=== PATIENT | male | born 2000 | race Caucasian/White ===

== ENCOUNTER 2020-04-25 18:34 | Emergency (ER) | payer SELFPAY ==
[2020-04-25] MEDS ORDERED: Dexamethasone 10 MG/ML SDV IM STA (18:40)
[2020-04-25] MEDS ORDERED: predniSONE 20 MG Tab PO STA (18:45)
[2020-04-25 19:08] VITALS: BP 148/86; PULSE 102
--- NOTE | 2020-04-25 19:14 | EDM.PDOC ---
ED HPI GENERAL MEDICAL PROBLEM - General Chief Complaint: Allergic Reaction Stated Complaint: SICK Time Seen by Provider: 04/25/20 18:39 - History of Present Illness INITIAL COMMENTS - FREE TEXT/NARRATIVE: History of present illness: [] this patient was stung by a bee friable his right forearm and he previously was stung in the hand on the left side and had his entire arm swelled up into a painful severe reaction. He is never been short of breath with airway problems or hypotension after being stung. Mother gave him 50 mg of Benadryl and sent him to the hospital because of the severity of the prior reaction. He also has a scratchy throat which he attributes to the fact that he was exposed to dust at work yesterday. He has no cough or fever. Review of systems: As per history of present illness and below otherwise all systems reviewed and negative. Past medical history: As per history of present illness and as reviewed below otherwise noncontributory. Surgical history: As per history of present illness and as reviewed below otherwise noncontributory. Social history: No reported history of drug or alcohol abuse. Family history: As per history of present illness and as reviewed below otherwise noncont ributory. Physical exam: HEENT: Atraumatic, normocephalic, pupils reactive, negative for conjunctival pallor or scleral icterus, mucous membranes moist, throat clear, neck supple, nontender, trachea midline. Lungs: Clear to auscultation, breath sounds equal bilaterally, chest nontender. Heart: S1S2, regular, negative for clicks, rubs, or JVD. Abdomen: Soft, nondistended, nontender. Negative for masses or hepatosplenomegaly. Negative for costovertebral tenderness. Pelvis: Stable nontender. Genitourinary: Deferred. Rectal: Deferred. Extremities: Atraumatic, negative for cords or calf pain. Neurovascular unremarkable. Neuro: Awake, alert, oriented. Cranial nerves II through XII unremarkable. Cerebellum unremarkable. Motor and sensory unremarkable throughout. Exam nonfocal. Diagnostics: [] Therapeutics: [] Impression: [] Plan: [] Definitive disposition and diagnosis as appropriate pending reevaluation and review of above. Treated with phone because mother said he had a episode of agitated behavior after Decadron in the past but has tolerated prednisone. A rapid strep was done also because of the scratchy throat without cough. - Related Data Allergies Allergy/AdvReac Type Severity Reaction Status Date / Time bee venom protein (honey bee) Allergy Swelling Verified 04/25/20 18:43 dexamethasone [From Decadron] Allergy Change Verified 06/28/19 22:05 Mental Status dexamethasone sod phosphate Allergy Change Verified 06/28/19 22:05 [From Decadron] Mental Status pneumococcal vaccine Allergy Fever Verified 06/28/19 22:05 [Pneumococcal Vaccine] Home Meds: Home Meds predniSONE [Prednisone] 40 mg PO DAILY #9 tablet 04/25/20 [Rx] Past Medical History - Past Health History Medical/Surgical History: Denies Medical/Surgical History - Infectious Disease History Infectious Disease History: Reports: None - Past Surgical History HEENT Surgical History: Reports: Adenoidectomy, Tonsillectomy Musculoskeletal Surgical History: Reports: Other (See Below) Other Musculoskeletal Surgeries/Procedures:: left foot sx Social & Family History - Family History Family Medical History: Noncontributory - Tobacco Use Smoking Status *Q: Current Every Day Smoker Years of Tobacco use: 3 Packs/Tins Daily: 1 - Recreational Drug Use Recreational Drug Use: No ED ROS ALLERGIC REACTION - Review of Systems Review Of Systems: Comprehensive ROS is negative, except as noted in HPI. ED EXAM GENERAL NO PERIP PULSE - Physical Exam Exam: See Below Text/Narrative:: Exam is on the H&P Course - Vital Signs Last Recorded V/S: Last Vital Signs Temp 97.2 F 04/25/20 18:37 Pulse 102 H 04/25/20 19:07 Resp 18 04/25/20 19:07 BP 148/86 H 04/25/20 19:07 Pulse Ox 96 04/25/20 19:07 - Orders/Labs/Meds Orders: Active Orders 24 hr Category Date Time Status STREP SCRN A RAPID W CULT CONF [RM] Stat Lab 04/25/20 19:07 Ordered Meds: Medications Discontinued Medications Generic Name Dose Route Start Last Admin Trade Name Mar PRN Reason Stop Dose Admin Dexamethasone 4 mg 04/25/20 18:40 04/25/20 19:08 Dexamethasone IM 04/25/20 18:41 Not Given ONETIME STA Prednisone 40 mg 04/25/20 18:45 04/25/20 19:07 Prednisone PO 04/25/20 18:46 40 mg ONETIME STA Administration Departure - Departure Time of Disposition: 19:16 Disposition: Home, Self-Care 01 Condition: Good Clinical Impression: Bee sting - Discharge Information *PRESCRIPTION DRUG MONITORING PROGRAM REVIEWED*: Not Applicable *COPY OF PRESCRIPTION DRUG MONITORING REPORT IN PATIENT MISTI: Not Applicable Referrals: PCP,None [Primary Care Provider] - Additional Instructions: The following information is given to patients seen in the emergency department who are being discharged to home. This information is to outline your options for follow-up care. We provide all patients seen in our emergency department with a follow-up referral. The need for follow-up, as well as the timing and circumstances, are variable depending upon the specifics of your emergency department visit. If you don't have a primary care physician on staff, we will provide you with a referral. We always advise you to contact your personal physician following an emergency department visit to inform them of the circumstance of the visit and for follow-up with them and/or the need for any referrals to a consulting specialist. The emergency department will also refer you to a specialist when appropriate. This referral assures that you have the opportunity for follow-up care with a specialist. All of these measure are taken in an effort to provide you with optimal care, which includes your follow-up. Under all circumstances we always encourage you to contact your private physician who remains a resource for coordinating your care. When calling for follow-up care, please make the office aware that this follow-up is from your recent emergency room visit. If for any reason you are refused follow-up, please contact the [facility] Emergency Department at and asked to speak to the emergency department charge nurse. [facility] - Primary Care [address] [place] [address] [id number] [address] [id number] Considering the severity of your prior reaction I would take Benadryl 25 mg 3 times a day for the next 3 days Sepsis Event Note (ED) - Evaluation Sepsis Screening Result: No Definite Risk - Focused Exam Vital Signs: Vital Signs Temp Pulse Resp BP Pulse Ox 04/25/20 19:07 102 H 18 148/86 H 96 04/25/20 18:37 97.2 F 120 H 20 160/92 H 97 - My Orders Last 24 Hours: My Active Orders 04/25/20 19:07 STREP SCRN A RAPID W CULT CONF [RM] Stat - Assessment/Plan Last 24 Hours: My Active Orders 04/25/20 19:07 STREP SCRN A RAPID W CULT CONF [RM] Stat
== END 2020-04-25 20:10 | disposition home or self-care (01) ==
LOC: MW.ED 18:34
DX: T63.441A Toxic effect of venom of bees, accidental (unintentional), initial encounter (principal); F17.210 Nicotine dependence, cigarettes, uncomplicated; Z91.030 Bee allergy status; Z88.8 Allergy status to other drugs, medicaments and biological substances
CPT/HCPCS: 87081; 87880; 99283; A9270; 99282

== ENCOUNTER 2020-11-20 18:57 | Emergency (ER) | payer OTHER ==
[2020-11-20] MEDS ORDERED: Diphtheria,Pertussis(Acell),Tetanus Vaccine 0.5 ML Syringe IM ONE (19:49)
--- NOTE | 2020-11-20 19:52 | EDM.PDOC ---
ED HPI GENERAL MEDICAL PROBLEM - General Chief Complaint: Laceration Stated Complaint: chest stiches Time Seen by Provider: 11/20/20 19:05 - History of Present Illness INITIAL COMMENTS - FREE TEXT/NARRATIVE: History of present illness: [] The patient was cut across the chest and through his shirt with a rubber roller grinder that was grinding metal. He has a laceration across the anterior chest. He has no other symptoms. He does not know when his last tetanus shot was. Lost control a rubber roller grinder and bounced up on his chest cutting his certain cutting his chest. Thereabouts in his nose and bruised his nose which has been broken multiple times in the past. He has a small laceration on the bridge of his nose and on his chest. Review of systems: As per history of present illness and below otherwise all systems reviewed and negative. Past medical history: As per history of present illness and as reviewed below otherwise noncontributory. Surgical history: As per history of present illness and as reviewed below otherwise noncon tributory. Social history: No reported history of drug or alcohol abuse. Family history: As per history of present illness and as reviewed below otherwise noncontributory. Physical exam: Constitutional - well developed, well-nourished and in no acute distress HEENT -Munir swelling in the nose. The septum is midline. There is no septal hematoma. There is a 3 mm laceration which is not concerned about having repaired on the anterior bridge of nose and is very superficial. Normocephalic, no evidence of trauma - external nose and mouth normal - no mass in neck and no JVD - mucosae moist EYES - full EOM, PERRL, no icterus - no evidence of inflammation, injection, or drainage Respiratory - no respiratory distress, equal bilateral expansion Musculoskeletal no gross deformity of long bones or joints - no tenderness, swelling or edema Neurologic - Alert and oriented times four - CN II-XII grossly intact - motor sensory and coordination symmetrically normal Psychiatric - appropriate mood and affect with normal thought content Hematologic - No petechiae or purpura - mucosa appropriate color and sclera not pale - normal nail bed color and refill Integument -1 to 1.2 cm laceration in the anterior chest wall. Its oriented side to side longitudinally and it has burnt or contaminated dark edges. It is slightly into the dermis. There is a linear abrasion that extends beyond the border of the laceration on both sides. Eyes no rash or evidence of trauma - normal turgor Diagnostics: [] Therapeutics: [] Impression: [] Plan: [] Definitive disposition and diagnosis as appropriate pending reevaluation and review of above. - Related Data Allergies Allergy/AdvReac Type Severity Reaction Status Date / Time bee venom protein (honey bee) Allergy Swelling Verified 11/20/20 19:18 dexamethasone [From Decadron] Allergy Change Verified 11/20/20 19:18 Mental Status dexamethasone sod phosphate Allergy Change Verified 11/20/20 19:18 [From Decadron] Mental Status pneumococcal vaccine Allergy Fever Verified 11/20/20 19:18 [Pneumococcal Vaccine] Home Meds: Home Meds . [No Known Home Meds] 11/20/20 [History] Past Medical History - Past Health History Medical/Surgical History: Denies Medical/Surgical History - Infectious Disease History Infectious Disease History: Reports: None - Past Surgical History HEENT Surgical History: Reports: Adenoidectomy, Tonsillectomy Musculoskeletal Surgical History: Reports: Other (See Below) Other Musculoskeletal Surgeries/Procedures:: left foot sx Social & Family History - Family History Family Medical History: No Pertinent Family History - Tobacco Use Tobacco Use Status *Q: Current Every Day Tobacco User Years of Tobacco use: 3 Packs/Tins Daily: 1 - Caffeine Use Caffeine Use: Reports: Coffee, Energy Drinks, Soda, Tea - Recreational Drug Use Recreational Drug Use: Yes Recreational Drug Type: Reports: Marijuana/Hashish Recreational Drug Use Frequency: Daily ED ROS GENERAL - Review of Systems Review Of Systems: Comprehensive ROS is negative, except as noted in HPI. ED EXAM, SKIN/RASH Exam: See Below Text/Narrative:: My physical exam is in the HPI ED SKIN PROCEDURES - Laceration/Wound Repair Middle Chest Appearance: Subcutaneous, Mildly Contaminated Distal NVT: Neuro & Vascular Intact Anesthetic Type: Local Local Anesthesia - Lidocaine (Xylocaine): 1% Plain Local Anesthetic Volume: 5cc Skin Prep: Chlorhexidine (Hibiciens), Saline Saline Irrigation (cc's): 500 Exploration/Debridement/Repair: Wound Explored, Moderate Debridement Closed with: Sutures Lac/Wound length In cm: 1.2 Suture Size: 4-0 # of Sutures: 5 Suture Type: Nylon Progress/Comments: Patient understood that we could do this by secondary intent with Betadine wet-to-dry dressings or we could suture the wound. It was too contaminated to consider suturing until we anesthetized it and had it scrubbed. After that it a ppeared clean and I discussed with him the possibility we might get away with a primary closure. He elected to do so and I did the procedure above described. He will watch closely for evidence of infection. There appears to be no contaminant left. Course - Vital Signs Text/Narrative:: On initial exam I am not sure the edges of the laceration are burned from heat are contaminated with debris from his shirt and the metal that the rubber roller grinder was cutting. The plan is to anesthetize the wound and scab it hard enough to see if we can get it down to an area that is clean and has no debris. If so I will repair it. If not I will show him how to do wet-to-dry there is things and have a recheck in 2 to 3 days. Last Recorded V/S: Last Vital Signs Temp 36.2 C 11/20/20 19:18 Pulse 95 11/20/20 19:18 Resp 17 11/20/20 19:18 BP 121/71 11/20/20 19:18 Pulse Ox 96 11/20/20 19:18 - Orders/Labs/Meds Orders: Active Orders 24 hr Category Date Time Status Vaccines to be Administered [RC] PER UNIT ROUTINE Care 11/20/20 19:50 Active Meds: Medications Discontinued Medications Generic Name Dose Route Start Last Admin Trade Name Phongq PRN Reason Stop Dose Admin Diphtheria/Tetanus/Acell Pertussis 0.5 ml 11/20/20 19:49 11/20/20 19:56 Boostrix IM 11/20/20 19:50 0.5 ml .ONCE ONE Administration Lidocaine HCl 5 ml 11/20/20 19:48 11/20/20 19:56 Xylocaine-Mpf 1% INJECT 11/20/20 19:49 5 ml ONETIME ONE Administration Departure - Departure Time of Disposition: 20:54 Disposition: Home, Self-Care 01 Condition: Good Clinical Impression: Laceration of chest wall, Laceration of nose, Contusion, nose - Discharge Information Instructions: Laceration Care, Adult, Sutured Wound Care, Facial or Scalp Contusion Referrals: PCP,None [Primary Care Provider] - Forms: ED Department Discharge Additional Instructions: Sutures out in 7 to 10 days. Because of the significance of the contamination that we try to clean out watch for redness pus drainage or evidence of infection and return to remove sutures and start over with dressings if this happens. [facility] - Primary Care [address] [place] [id number] [facility] [address] [place] [address] The following information is given to patients seen in the emergency department who are being discharged to home. This information is to outline your options for follow-up care. We provide all patients seen in our emergency department with a follow-up referral. The need for follow-up, as well as the timing and circumstances, are variable depending upon the specifics of your emergency department visit. If you don't have a primary care physician on staff, we will provide you with a referral. We always advise you to contact your personal physician following an emergency department visit to inform them of the circumstance of the visit and for follow-up with them and/or the need for any referrals to a consulting specialist. The emergency department will also refer you to a specialist when appropriate. This referral assures that you have the opportunity for follow-up care with a specialist. All of these measure are taken in an effort to provide you with optimal care, which includes your follow-up. Under all circumstances we always encourage you to contact your private physician who remains a resource for coordinating your care. When calling for follow-up care, please make the office aware that this follow-up is from your recent emergency room visit. If for any reason you are refused follow-up, please contact the [facility] Emergency Department at and asked to speak to the emergency department charge nurse. Sepsis Event Note (ED) - Evaluation Sepsis Screening Result: No Definite Risk - Focused Exam Vital Signs: Vital Signs Temp Pulse Resp BP Pulse Ox 11/20/20 19:18 36.2 C 95 17 121/71 96 - My Orders Last 24 Hours: My Active Orders 11/20/20 19:50 Vaccines to be Administered [RC] PER UNIT ROUTINE - Assessment/Plan Last 24 Hours: My Active Orders 11/20/20 19:50 Vaccines to be Administered [RC] PER UNIT ROUTINE
[2020-11-20 21:13] VITALS: BP 121/79; PULSE 69
== END 2020-11-20 21:13 | disposition home or self-care (01) ==
LOC: MW.ED 18:57
DX: S21.119A Laceration without foreign body of unspecified front wall of thorax without penetration into thoracic cavity, initial encounter (principal); S01.21XA Laceration without foreign body of nose, initial encounter; Z91.030 Bee allergy status; Z88.8 Allergy status to other drugs, medicaments and biological substances; Z72.0 Tobacco use; Z23 Encounter for immunization; W31.89XA Contact with other specified machinery, initial encounter; Y99.0 Civilian activity done for income or pay
CPT/HCPCS: 12001; 90471; 99282; J2001

== ENCOUNTER 2021-04-16 19:02 | Emergency (ER) | payer SELFPAY ==
[2021-04-16] MEDS ORDERED: Levofloxacin 500 MG Tab PO ONE (19:25)
--- NOTE | 2021-04-16 19:29 | EDM.PDOC ---
ED HPI GENERAL MEDICAL PROBLEM - General Chief Complaint: Lower Extremity Injury/Pain Stated Complaint: RIGHT TOE, STEP ON A NAIL Time Seen by Provider: 04/16/21 19:04 Source of Information: Reports: Patient History Limitations: Reports: No Limitations - History of Present Illness INITIAL COMMENTS - FREE TEXT/NARRATIVE: Patient is a 20-year-old male who presents today for stepping on a nail. Patient was wearing shoes and socks states he stepped on right knee nail was able to pull out intact out of his big toe. Patient states that he has some bleeding from his first right toe that is since stopped. Patient reports some swelling and pain. Patient denies any fever chills nausea vomiting or other complaints. right toe Pain Score (Numeric/FACES): 8 - Related Data Allergies Allergy/AdvReac Type Severity Reaction Status Date / Time bee venom protein (honey bee) Allergy Swelling Verified 04/16/21 19:17 dexamethasone [From Decadron] Allergy Change Verified 04/16/21 19:17 Mental Status dexamethasone sod phosphate Allergy Change Verified 04/16/21 19:17 [From Decadron] Mental Status pneumococcal vaccine Allergy Fever Verified 04/16/21 19:17 [Pneumococcal Vaccine] Home Meds: Home Meds levoFLOXacin [Levaquin] 750 mg PO DAILY 7 Days #7 tab 04/16/21 [Rx] Past Medical History - Past Health History Medical/Surgical History: Denies Medical/Surgical History - Infectious Disease History Infectious Disease History: Reports: None - Past Surgical History HEENT Surgical History: Reports: Adenoidectomy, Tonsillectomy Musculoskeletal Surgical History: Reports: Other (See Below) Other Musculoskeletal Surgeries/Procedures:: left foot sx Social & Family History - Family History Family Medical History: No Pertinent Family History - Tobacco Use Packs/Tins Daily: 0.5 - Caffeine Use Caffeine Use: Reports: None - Recreational Drug Use Recreational Drug Use: Yes Recreational Drug Type: Reports: Marijuana/Hashish Review of Systems - Review of Systems Review Of Systems: See Below Constitutional: Reports: No Symptoms Eyes: Reports: No Symptoms Ears: Reports: No Symptoms Nose: Reports: No Symptoms Mouth/Throat: Reports: No Symptoms Respiratory: Reports: No Symptoms Cardiovascular: Reports: No Symptoms GI/Abdominal: Reports: No Symptoms Genitourinary: Reports: No Symptoms Musculoskeletal: Reports: No Symptoms Skin: Reports: Wound (puncture) Neurological: Reports: No Symptoms Psychiatric: Reports: No Symptoms ED EXAM, GENERAL - Physical Exam Exam: See Below Exam Limited By: No Limitations General Appearance: Alert, WD/WN Extremities: Normal Inspection, Normal Range of Motion, Non-Tender Neurological: Alert, Oriented, Normal Gait Skin Exam: Other (small puncture wound to 1st toe ) Course - Vital Signs Last Recorded V/S: Last Vital Signs Temp 97.9 F 04/16/21 19:15 Pulse 97 04/16/21 19:15 Resp 16 04/16/21 19:15 BP 141/102 H 04/16/21 19:15 Pulse Ox 99 04/16/21 19:15 - Orders/Labs/Meds Orders: Active Orders 24 hr Category Date Time Status Foot Comp Min 3V Rt [CR] Stat Exams 04/16/21 19:19 Taken Meds: Medications Discontinued Medications Generic Name Dose Route Start Last Admin Trade Name Freq PRN Reason Stop Dose Admin Levofloxacin 750 mg 04/16/21 19:25 04/16/21 19:33 Levofloxacin 500 Mg Tab PO 04/16/21 19:26 750 mg ONETIME ONE Administration Departure - Departure Time of Disposition: 19:45 Disposition: Home, Self-Care 01 Condition: Good Clinical Impression: Puncture wound of toe of right foot - Discharge Information *PRESCRIPTION DRUG MONITORING PROGRAM REVIEWED*: Not Applicable *COPY OF PRESCRIPTION DRUG MONITORING REPORT IN PATIENT MISTI: Not Applicable Prescriptions: levoFLOXacin [Levaquin] 750 mg PO DAILY 7 Days #7 tab Instructions: Puncture Wound Referrals: PCP,None [Primary Care Provider] - Forms: ED Department Discharge Additional Instructions: The following information is given to patients seen in the emergency department who are being discharged to home. This information is to outline your options for follow-up care. We provide all patients seen in our emergency department with a follow-up referral. The need for follow-up, as well as the timing and circumstances, are variable depending upon the specifics of your emergency department visit. If you don't have a primary care physician on staff, we will provide you with a referral. We always advise you to contact your personal physician following an emergency department visit to inform them of the circumstance of the visit and for follow-up with them and/or the need for any referrals to a consulting specialist. The emergency department will also refer you to a specialist when appropriate. This referral assures that you have the opportunity for follow-up care with a specialist. All of these measure are taken in an effort to provide you with optimal care, which includes your follow-up. Under all circumstances we always encourage you to contact your private physician who remains a resource for coordinating your care. When calling for follow-up care, please make the office aware that this follow-up is from your recent emergency room visit. If for any reason you are refused follow-up, please contact the Emergency Department at and asked to speak to the emergency department charge nurse. Please follow up with your primary care physician. If you do not have a primary care physician, see below: [facility] Primary [facility] [address] [place] [id number] My [facility] [address] [place] [address] You were seen today after stepped on a nail that went to your shoe. We did x- ray and there was no retained nail in the toe and the toe looks intact with no fractures. We will continue home antibiotics he would take daily. Please continue to keep the area clean. If you have any increased pain swelling of the toe or drainage please return to ED immediately otherwise follow-up with your primary care physician. Sepsis Event Note (ED) - Evaluation Sepsis Screening Result: No Definite Risk - Focused Exam Vital Signs: Vital Signs Temp Pulse Resp BP Pulse Ox 04/16/21 19:15 97.9 F 97 16 141/102 H 99 - My Orders Last 24 Hours: My Active Orders 04/16/21 19:19 Foot Comp Min 3V Rt [CR] Stat - Assessment/Plan Last 24 Hours: My Active Orders 04/16/21 19:19 Foot Comp Min 3V Rt [CR] Stat Plan: Patient is a 20-year-old male presents today for puncture wound to his first toe. There is a small puncture wound. Will obtain x-ray to make sure that they have the nail does not retain. Will prescribe patient antibiotics and discharge home likely.
[2021-04-16 19:33] VITALS: BP 141/102; PULSE 97
--- NOTE | 2021-04-16 20:21 | CR ---
For Patients: As a result of the Cures Act, medical imaging exams and procedure reports are released immediately into your electronic medical record. You may view this report before your referring provider. If you have questions, please contact your health care provider. Indication: Puncture injury. Stepped on nail. Technique: Right foot 3 views Comparison: None Findings/Impression: Bones: Alignment is normal. No fractures or bone lesions. Joint spaces: Unremarkable. Soft tissues: Unremarkable. No sign of soft tissue injury or foreign body. Dictated by Jose Garcia MD @ 04/16/2021 8:19:[address] Jose Garcia @ Apr 16 2021 8:19PM
== END 2021-04-16 19:54 | disposition home or self-care (01) ==
LOC: MW.ED 19:02
DX: S91.131A Puncture wound without foreign body of right great toe without damage to nail, initial encounter (principal); Z91.030 Bee allergy status; Z88.8 Allergy status to other drugs, medicaments and biological substances; Z88.7 Allergy status to serum and vaccine; Z72.0 Tobacco use; W45.0XXA Nail entering through skin, initial encounter
CPT/HCPCS: 73630; 99283; A9270

== ENCOUNTER 2022-04-04 20:53 | Emergency (ER) | payer SELFPAY ==
[2022-04-04] MEDS ORDERED: Ibuprofen 600 MG Tab PO ONE (21:00)
[2022-04-04] MEDS ORDERED: Acetaminophen/HYDROcodone 325-5 MG Tab PO ONE (21:00)
[2022-04-04] MEDS ORDERED: Bacitracin Oint 1 GM U/D Packet TOP ONE (21:00)
[2022-04-04 22:38] VITALS: BP 125/79; PULSE 103
== END 2022-04-04 22:53 | disposition home or self-care (01) ==
LOC: MW.ED 20:53
DX: S60.512A Abrasion of left hand, initial encounter (principal); S80.212A Abrasion, left knee, initial encounter; S50.811A Abrasion of right forearm, initial encounter; S09.90XA Unspecified injury of head, initial encounter; Z91.030 Bee allergy status; Z88.7 Allergy status to serum and vaccine; Z88.8 Allergy status to other drugs, medicaments and biological substances; V86.56XA Driver of dirt bike or motor/cross bike injured in nontraffic accident, initial encounter; Y92.410 Unspecified street and highway as the place of occurrence of the external cause
CPT/HCPCS: 70450; 72125; 73130; 99284; A9270

== ENCOUNTER 2023-02-09 12:32 | Emergency (ER) | payer SELFPAY ==
[2023-02-09] MEDS ORDERED: Ketorolac 30 MG/ML SDV IVPUSH ONE (13:24)
[2023-02-09] MEDS ORDERED: Sodium Chloride 0.9% 1,000 ML IV ONE (13:24)
[2023-02-09] MEDS ORDERED: Ondansetron 4 MG/2 ML SDV IVPUSH ONE (13:24)
[2023-02-09 14:01] LABS: CARBON DIOXIDE,CO2 26.2 mmol/L (21.0-32.0); POTASSIUM,K 4.3 mmol/L (3.5-5.1)
[2023-02-09 14:22] LABS: CORONAVIRUS COVID-19 NAA NEGATIVE (NEGATIVE); INFLUENZA A NAA NEGATIVE (NEGATIVE); INFLUENZA B NAA NEGATIVE (NEGATIVE)
[2023-02-09] MEDS ORDERED: Iopamidol 755 MG/ML 500 ML Multipack Bottle IVPUSH ONE (15:12)
[2023-02-09 17:23] VITALS: BP 125/78; PULSE 83
== END 2023-02-09 17:23 | disposition home or self-care (01) ==
LOC: MW.ED 12:32
DX: R11.2 Nausea with vomiting, unspecified (principal); D72.829 Elevated white blood cell count, unspecified; Z91.030 Bee allergy status; Z88.7 Allergy status to serum and vaccine; Z88.8 Allergy status to other drugs, medicaments and biological substances; Z20.822 Contact with and (suspected) exposure to COVID-19
CPT/HCPCS: 0240U; 36415; 74177; 80053; 80307; 81003; 83690; 85025; 96361; 96374; 96375; 99284; J1885; J2405; J7030; Q9967

== ENCOUNTER 2023-02-12 10:53 | Emergency (ER) | payer SELFPAY ==
[2023-02-12 11:03] VITALS: BP 153/94; PULSE 79
== END 2023-02-12 12:12 | disposition home or self-care (01) ==
LOC: MW.ED 10:53
DX: R10.84 Generalized abdominal pain (principal); J34.89 Other specified disorders of nose and nasal sinuses; Z71.1 Person with feared health complaint in whom no diagnosis is made; Z91.030 Bee allergy status; Z88.8 Allergy status to other drugs, medicaments and biological substances; Z88.7 Allergy status to serum and vaccine
CPT/HCPCS: 99282; 99283

== ENCOUNTER 2023-03-15 08:27 | Emergency (ER) | payer SELFPAY ==
[2023-03-15] MEDS ORDERED: Sodium Chloride 0.9% 2.5 ML Syringe FLUSH PRN (08:40)
[2023-03-15] MEDS ORDERED: Sodium Chloride 0.9% 10 ML Syringe FLUSH PRN (08:40)
[2023-03-15] MEDS ORDERED: Lactated Ringers 1,000 ML IV ONE (08:42)
[2023-03-15 08:48] LABS: BASOPHILS PERCENT AUTO 0.4 % (0.0-1.5); EOSINOPHILS ABSOLUTE AUTO 0.2 K/uL (0.0-0.7); EOSINOPHILS PERCENT AUTO 1.8 % (0.0-7.0); HEMATOCRIT 46.2 % (38.0-50.0); LYMPHOCYTES PERCENT AUTO 40.1 % (16.0-40.0); MEAN CORPUSCULAR HEMOGLOBIN 31.6 pg (27.0-32.0); MEAN CORPUSCULAR HGB CONC 34.6 g/dL (31.0-37.0); MEAN CORPUSCULAR VOLUME 91.1 fL (80.0-98.0); MONOCYTES ABSOLUTE AUTO 1.1 K/uL (0.0-0.8); MONOCYTES PERCENT AUTO 11.1 % (0.0-15.0); NEUTROPHILS ABSOLUTE AUTO 4.7 K/uL (1.4-5.7); NEUTROPHILS PERCENT AUTO 46.6 % (48.0-80.0); PLATELET COUNT,PLT 326 K/uL (150-400); RED BLOOD CELL COUNT 5.07 M/uL (4.50-5.90); WHITE BLOOD CELL COUNT,WBC 10.03 K/uL (4.0-11.0)
[2023-03-15 09:14] VITALS: BP 105/62; PULSE 81
[2023-03-15 09:14] LABS: A/G RATIO 1.2 (0.9-1.6); BILIRUBIN TOTAL 0.4 mg/dL (0.2-1.0); CALCIUM 9.8 mg/dL (8.5-10.1); CREATININE 1.3 mg/dL (0.8-1.3); EST CRCL DRUG DOSING (CG) 82.92 mL/min; POTASSIUM,K 4.1 mmol/L (3.5-5.1); PROTEIN TOTAL,TP 7.3 g/dL (6.4-8.2)
== END 2023-03-15 09:22 | disposition home or self-care (01) ==
LOC: MW.ED 08:27
DX: R55 Syncope and collapse (principal); Z88.8 Allergy status to other drugs, medicaments and biological substances; Z88.7 Allergy status to serum and vaccine; Z91.030 Bee allergy status
CPT/HCPCS: 36415; 80053; 82947; 83735; 84484; 85025; 93005; 96360; 99284; J3490; J7120; 93010; 99283

== ENCOUNTER 2024-02-13 10:12 | Emergency (ER) | payer SELFPAY ==
[2024-02-13] MEDS: Lidocaine 1% PF 2 ML SDV INJECT ONE (10:34)
[2024-02-13 11:00] VITALS: BP 126/86; PULSE 68
== END 2024-02-13 11:00 | disposition home or self-care (01) ==
LOC: MW.ED 10:12
DX: S61.210A Laceration without foreign body of right index finger without damage to nail, initial encounter (principal); S61.212A Laceration without foreign body of right middle finger without damage to nail, initial encounter; Z91.030 Bee allergy status; Z88.8 Allergy status to other drugs, medicaments and biological substances; Z88.7 Allergy status to serum and vaccine; Z75.8 Other problems related to medical facilities and other health care; W26.8XXA Contact with other sharp object(s), not elsewhere classified, initial encounter
CPT/HCPCS: 12001; 99282; 99283; J3490

== ENCOUNTER 2024-06-15 16:30 | Emergency (ER) | payer SELFPAY ==
[2024-06-15] MEDS ORDERED: Sodium Chloride 0.9% 2.5 ML Syringe FLUSH PRN (16:41)
[2024-06-15] MEDS ORDERED: Sodium Chloride 0.9% 10 ML Syringe FLUSH PRN (16:41)
[2024-06-15] MEDS ORDERED: Sodium Chloride 0.9% 20 ML SDV IV PRN (16:41)
[2024-06-15] MEDS: diphenhydrAMINE 50 MG/ML SDV IVPUSH ONE (17:01)
[2024-06-15] MEDS: methylPREDNISolone Sodium Succinate 125 MG/2 ML SDV IVPUSH ONE (17:01)
[2024-06-15] MEDS: Famotidine 20 MG/2 ML SDV IVPUSH ONE (17:01)
[2024-06-15] MEDS: EPINEPHrine 1 MG/1 ML Amp IM ONE (19:12)
[2024-06-15 19:38] VITALS: BP 147/73; PULSE 93
== END 2024-06-15 19:41 | disposition home or self-care (01) ==
LOC: MW.ED 16:30
DX: T63.441A Toxic effect of venom of bees, accidental (unintentional), initial encounter (principal); Z88.8 Allergy status to other drugs, medicaments and biological substances; Z91.030 Bee allergy status
CPT/HCPCS: 96374; 96375; 99282; J1200; J2919; J3490

== ENCOUNTER 2024-07-01 01:03 | Emergency (ER) | payer SELFPAY ==
[2024-07-01] MEDS: Acetaminophen/HYDROcodone 325-5 MG Tab PO ONE (01:20)
[2024-07-01 02:39] VITALS: BP 145/78; PULSE 78
== END 2024-07-01 02:36 | disposition home or self-care (01) ==
LOC: MW.ED 01:03
DX: S02.40CA Maxillary fracture, right side, initial encounter for closed fracture (principal); S02.19XA Other fracture of base of skull, initial encounter for closed fracture; Z88.8 Allergy status to other drugs, medicaments and biological substances; Z91.030 Bee allergy status; Z88.7 Allergy status to serum and vaccine; W22.8XXA Striking against or struck by other objects, initial encounter
CPT/HCPCS: 70450; 70486; 99284; A9270

== ENCOUNTER 2024-11-05 08:25 | Emergency (ER) | payer SELFPAY ==
[2024-11-05 08:52] LABS: BASOPHILS ABSOLUTE AUTO 0.04 K/uL (0.00-0.20); BASOPHILS PERCENT AUTO 0.2 % (0.0-1.0); EOSINOPHILS ABSOLUTE AUTO 0.09 K/uL (0.00-0.45); EOSINOPHILS PERCENT AUTO 0.5 % (0.0-6.0); HEMATOCRIT 49.9 % (42.0-52.0); HEMOGLOBIN 18.1 g/dL (14.0-18.0); IMMATURE GRAN ABSOLUTE AUTO 0.06 K/uL (0.00-0.05); IMMATURE GRAN PERCENT AUTO 0.3 % (0.0-0.4); LYMPHOCYTES ABSOLUTE AUTO 0.82 K/uL (1.00-4.80); LYMPHOCYTES PERCENT AUTO 4.8 % (24.0-44.0); MEAN CORPUSCULAR HEMOGLOBIN 32.1 pg (28.0-32.0); MEAN CORPUSCULAR HGB CONC 36.3 g/dL (32.0-36.0); MEAN CORPUSCULAR VOLUME 88.5 fL (83.0-99.0); MEAN PLATELET VOLUME 8.7 fL (9.4-12.4); MONOCYTES ABSOLUTE AUTO 1.02 K/uL (0.00-0.80); MONOCYTES PERCENT AUTO 5.9 % (0.0-8.0); NEUTROPHILS PERCENT AUTO 88.3 % (41.0-71.0); PLATELET COUNT,PLT 270 K/uL (150-400); RED BLOOD CELL COUNT 5.64 M/uL (4.52-5.90); WHITE BLOOD CELL COUNT,WBC 17.23 K/uL (3.9-11.3)
[2024-11-05] MEDS: Sodium Chloride 0.9% 1,000 ML IV ONE (08:52)
[2024-11-05 09:15] LABS: A/G RATIO 1.3 (0.9-1.6); ALBUMIN 4.6 g/dL (3.4-5.0); CALCIUM 9.9 mg/dL (8.5-10.1); CREATININE 1.4 mg/dL (0.8-1.3); EST CRCL DRUG DOSING (CG) 78.71 mL/min; POTASSIUM,K 4.5 mmol/L (3.5-5.1); PROTEIN TOTAL,TP 8.1 g/dL (6.4-8.2)
[2024-11-05 10:49] LABS: APPEARANCE,URINE CLEAR; COLOR,URINE YELLOW; GLUCOSE,URINE NEGATIVE (NEGATIVE); KETONES,URINE NEGATIVE (NEGATIVE); LEUKOCYTE ESTERASE,URINE NEGATIVE (NEGATIVE); NITRITE,URINE NEGATIVE (NEGATIVE); OCCULT BLOOD,URINE TRACE-INTACT (NEGATIVE); PROTEIN,URINE 30 mg/dL (NEGATIVE); UROBILINOGEN,URINE 0.2 EU/dL (<2.0)
[2024-11-05 10:51] LABS: BILIRUBIN,URINE SMALL (NEGATIVE)
[2024-11-05 11:00] LABS: BACTERIA,URINE FEW (NEGATIVE); EPITHELIAL CELLS,URINE RARE (NONE-FEW); MUCUS,URINE MODERATE (NONE-MOD); RBC,URINE 0-2 (0-2/HPF); WBC,URINE 0-2 (0-5/HPF)
[2024-11-05] MEDS: Iopamidol 755 Mg/ML 100 ML Bottle IVPUSH ONE (11:04)
[2024-11-05] MEDS: Alum Hydrox/Mag Hydrox/Simeth 15 ML, Metoclopramide 5 MG, Lidocaine 2% 5 ML PO ONE (11:35)
[2024-11-05 12:22] VITALS: BP 129/84; PULSE 105
== END 2024-11-05 12:21 | disposition home or self-care (01) ==
LOC: MW.ED 08:25
DX: K52.9 Noninfective gastroenteritis and colitis, unspecified (principal); Z90.89 Acquired absence of other organs; Z88.7 Allergy status to serum and vaccine; Z88.8 Allergy status to other drugs, medicaments and biological substances; Z91.030 Bee allergy status; Z79.899 Other long term (current) drug therapy; Z75.8 Other problems related to medical facilities and other health care
CPT/HCPCS: 36415; 74177; 80053; 81001; 83690; 85025; 87428; 96360; 99284; A9270; J7030; Q9967

== ENCOUNTER 2025-09-11 01:03 | Emergency (ER) | payer OTHER ==
[2025-09-11] MEDS: Ondansetron 4 MG/2 ML SDV IVPUSH ONE (01:13)
[2025-09-11] MEDS: Ondansetron 4 MG/2 ML SDV ONE (01:17)
[2025-09-11 01:22] LABS: INR 1.08 (0.86-1.11)
[2025-09-11 01:32] LABS: A/G RATIO 1.3 (0.9-1.6); ALANINE AMINOTRANSFERASE,ALT 51 IU/L (14-63); ASPARTATE AMNIOTRANSFERASE,AST 31 IU/L (15-37); BILIRUBIN TOTAL 0.5 mg/dL (0.2-1.0); BLOOD UREA NITROGEN,BUN 16 mg/dL (7.0-18.0); CARBON DIOXIDE,CO2 29.0 mmol/L (21.0-32.0); CHLORIDE,CL 102 mmol/L (98-107); CREATININE 1.4 mg/dL (0.8-1.3); ETHANOL BLOOD MEDICAL <3 mg/dL; GLUCOSE RANDOM 159 mg/dL (74-106); POTASSIUM,K 3.2 mmol/L (3.5-5.1); PROTEIN TOTAL,TP 7.6 g/dL (6.4-8.2); SODIUM,NA 140 mmol/L (136-148)
[2025-09-11 01:37] LABS: ESTIMATED GFR 72 mL/min (>60)
[2025-09-11 01:40] LABS: MEAN PLATELET VOLUME 9.4 fL (9.4-12.4); NRBC ABSOLUTE 0.00 K/uL (0.00-0.02); NRBC PERCENT 0.0 /100WBC (0.0-0.2); PLATELET COUNT,PLT 344 K/uL (150-400); RED BLOOD CELL COUNT 5.23 M/uL (4.52-5.90); WHITE BLOOD CELL COUNT,WBC 15.09 K/uL (3.9-11.3)
[2025-09-11] MEDS: Propofol 200 MG/20 ML SDV IVPUSH ONE (02:00)
[2025-09-11 02:05] LABS: EOSINOPHILS ABSOLUTE MAN 0.15 K/uL (0.00-0.45); EOSINOPHILS PERCENT MAN 1 % (0-6); LYMPHOCYTES ABSOLUTE MAN 6.04 K/uL (1.00-4.80); LYMPHOCYTES PERCENT MAN 40 % (24-44); MONOCYTES ABSOLUTE MAN 1.06 K/uL (0.00-0.80); MONOCYTES PERCENT MAN 7 % (0-8); SEG NEUTROPHILS ABSOLUTE MAN 7.85 K/uL (1.80-7.70); SEG NEUTROPHILS PERCENT MAN 52 % (41-71)
[2025-09-11] MEDS: Propofol 200 MG/20 ML SDV ONE (02:08)
[2025-09-11] MEDS: Iopamidol 755 MG/ML 500 ML Multipack Bottle IVPUSH ONE (02:22)
[2025-09-11] MEDS: Ketorolac 30 MG/ML SDV IVPUSH ONE (03:20)
[2025-09-11 03:28] LABS: APPEARANCE,URINE CLEAR; GLUCOSE,URINE NEGATIVE (NEGATIVE); OCCULT BLOOD,URINE NEGATIVE (NEGATIVE)
[2025-09-11 03:37] VITALS: BP 146/87; PULSE 75
[2025-09-11 03:38] LABS: AMPHETAMINES SCREEN, URINE NEGATIVE (CUTOFF=500); BUPRENORPHINE SCREEN,URINE NEGATIVE (CUTOFF=10); METHADONE SCREEN, URINE NEGATIVE (CUTOFF=200); METHAMPHETAMINES SCREEN, URINE NEGATIVE (CUTOFF=500); OXYCODONE SCREEN,URINE NEGATIVE (CUT0FF=100); PCP SCREEN,URINE NEGATIVE (CUTOFF=25); THC SCREEN,URINE 20 NG/ML PRESUMPTIVE POSITIVE (CUTOFF=50)
== END 2025-09-11 03:35 | disposition home or self-care (01) ==
LOC: MW.ED 01:03
DX: S43.015A Anterior dislocation of left humerus, initial encounter (principal); S16.1XXA Strain of muscle, fascia and tendon at neck level, initial encounter; S06.9X9A Unspecified intracranial injury with loss of consciousness of unspecified duration, initial encounter; Z91.030 Bee allergy status; Z88.8 Allergy status to other drugs, medicaments and biological substances; Z88.7 Allergy status to serum and vaccine; Z79.899 Other long term (current) drug therapy; V49.50XA Passenger injured in collision with unspecified motor vehicles in traffic accident, initial encounter; Y92.410 Unspecified street and highway as the place of occurrence of the external cause
CPT/HCPCS: 23650; 23655; 36415; 70450; 70450-26; 71260; 71260-26; 72125; 72125-26; 73020-26-RT; 73020-RT; 73030-26-LT; 73030-LT; 74177; 74177-26; 80053; 80305; 80307; 81003; 83690; 85025; 85610; 96361; 96374; 96375; 99284; 99285-25; J1171; J1885; J2405; J2704; J7030; Q9967